=== PATIENT | male | born 1975 | race African-American/Black ===

== ENCOUNTER 2019-11-08 14:53 | Emergency (ER) | payer MEDICAID, OTHER ==
[~2019-11-08] VITALS: Ht 172.7 cm; Wt 77.0 kg
[2019-11-08 14:57] VITALS: BP 122/70
[2019-11-08] MEDS ORDERED: CEFTRIAXONE SODIUM 250 MG/VIAL IM ONE (16:45)
[2019-11-08] MEDS ORDERED: IBUPROFEN 600MG TABLET PO ONE (16:45)
[2019-11-08] MEDS ORDERED: AZITHROMYCIN 500 MG TABLET PO ONE (16:45)
[2019-11-08 17:26] LABS: CLARITY URINE CLEAR (CLEAR); COLOR URINE YELLOW (YELLOW); KETONES URINE NEGATIVE (NEGATIVE); LEUKOCYTE ESTERASE URINE TRACE (NEGATIVE); NITRITE URINE NEGATIVE (NEGATIVE); OCCULT BLOOD URINE NEGATIVE (NEGATIVE); PH URINE 5.5 (4.5-8.0); PROTEIN URINE NEGATIVE (NEGATIVE); SPECIFIC GRAVITY URINE 1.026 (1.005-1.030)
[2019-11-11 04:11] LABS: NEISSERIA GONORRHOEAE NAA Negative (Negative)
== END 2019-11-08 17:31 | disposition home or self-care (01) ==
LOC: ER 14:53
DX: Z20.2 Contact with and (suspected) exposure to infections with a predominantly sexual mode of transmission (principal)
CPT/HCPCS: 81003; 87086; 87491; 87591; 96372; 99283; J0696